=== PATIENT | female | born 1985 | race African-American/Black ===

== ENCOUNTER 2017-09-14 08:56 | Emergency (ER) | payer MEDICAID, OTHER ==
[~2017-09-14] VITALS: Ht 170.2 cm; Wt 56.7 kg
[2017-09-14 09:02] VITALS: BP 154/90
== END 2017-09-14 10:20 | disposition left against medical advice (07) ==
LOC: EDBD 08:56 → ER 08:56
DX: F41.9 Anxiety disorder, unspecified (principal); Z53.21 Procedure and treatment not carried out due to patient leaving prior to being seen by health care provider
CPT/HCPCS: 93005